=== PATIENT | male | born 1955 | race Caucasian/White ===

== ENCOUNTER 2019-12-27 17:18 | IRF | payer MEDICAID, SELFPAY ==
--- NOTE | ~2019-12-27 | US_ITS ---
EXAMINATION:US venous doppler LE BI INDICATION:Leg edema TECHNIQUE: Multiple grayscale, color flow and Doppler images of the lower extremity deep venous syste ms were obtained and reviewed. COMPARISON:No prior studies for comparison. FINDINGS: The common femoral, superficial femoral and popliteal veins demonstrate normal respiratory variation, augmentation and compressibility. Color flow is also seen within the posterior tibial, pe roneal, greater saphenous and profunda veins. IMPRESSION: 1: No lower extremity deep venous thrombosis. Reviewed, dictated and finalized at location A.
--- NOTE | ~2019-12-27 | US_ITS ---
EXAMINATION: US soft tissue LE RT DATE: 01/02/2020 13:39 INDICATION: Right calf mass. TECHNIQUE: Multiple grayscale and Doppler ultrasound images of the right lower leg were obtained. COMPARISON: None FINDINGS: In the medial right calf, there is a 5.8 x 1.9 x 3.5 cm mixed solid and cystic mass. IMPRESSION: 1. Mixed solid and cystic mass in the medial right calf, most likely a hematoma. Reviewed, dictated and finalized at location A. IMPRESSION: 1. Mixed solid and cystic mass in the medial right calf, most likely a hematoma .
[2019-12-27 17:15] VITALS: BP 133/92; PULSE 96; RESP 20; TEMP 37; O2SAT 100; BMI 40.0
--- NOTE | 2019-12-27 17:15 | ADMGEN ---
This patient, Gianluca Laurent, was admitted to [facility] Room 221-01. Patient/family oriented to hospital policies and general routines including ID bracelet, bed and alarms, visiting hours, pain management, procedures, bathroom and other care routines, personal items, smoking policy, room service/diet, and visiting hours. Valuables list has been completed. Information on how to activate the Rapid Response Team has been discussed. Patient/Family are encouraged to report perceived risks to care and to ask questions if they do not understand what they are told or what they should do.
[2019-12-27 22:00] VITALS: BP 129/51; PULSE 92; RESP 20; TEMP 37.2; O2SAT 99
[2019-12-27] MEDS: PANTOPRAZOLE 40 MG TABLET PO (22:53)
[2019-12-27] MEDS: MELATONIN 5 MG TABLET PO (22:53)
[2019-12-27] MEDS: ATORVASTATIN 40 MG TABLET 80 MG PO (22:53)
[2019-12-27] MEDS: DOCUSATE SODIUM 100 MG CAPSULE PO (22:53)
[2019-12-27] MEDS: ACETAMINOPHEN 325 MG TABLET 650 MG PO (22:53)
[2019-12-27 23:30] VITALS: PULSE 86; RESP 23; O2SAT 95
[2019-12-28] VITALS (8 sets, daily range): BP systolic 124–150; BP diastolic 52–61; PULSE 76–120; RESP 18–24; TEMP 36.5–36.6; O2SAT 95–100; BMI 39.4
[2019-12-28 01:05] LABS: Glucose Point of Care 153 (65-105)
[2019-12-28] MEDS: SALINE 0.65% NAS SOLN 44 ML BTL 1 SPRAY NASAL (04:48)
[2019-12-28] MEDS: ACETAMINOPHEN 325 MG TABLET 650 MG PO (04:48)
[2019-12-28 05:55] LABS: Basophils Percent Auto 0.3 % (0.2-1.2); Eosinophils Absolute Auto 0.2 K/mm3 (0-0.3); Eosinophils Percent Auto 2.4 % (0-4.4); Hematocrit 24.9 % (42.0-52.0); Hemoglobin 8.3 g/dL (14.0-18.0); Immature Granulocyte Absolute 0.09 K/mm3 (0.00-0.031); Immature Granulocyte Percent A 0.9 % (0-0.5); Lymphocytes Absolute Auto 2.51 K/mm3 (0.9-3.2); Lymphocytes Percent Auto 26.1 % (18.3-44.2); Mean Corpuscular HGB Conc 33.3 g/dl (32-36); Mean Corpuscular Hemoglobin 30.2 pg (26-34); Mean Corpuscular Volume 90.5 fl (80-100); Mean Platelet Volume 10.7 fl (7.4-10.4); Monocytes Absolute Auto 1.2 K/mm3 (0.1-0.6); Monocytes Percent Auto 12.7 % (2.6-8.5); Neutrophils Absolute Auto 5.6 K/mm3 (1.3-6.7); Neutrophils Percent Auto 57.6 % (45.5-73.1); Nucleated Red Blood Cells Absolute Auto 0.1 K/mm3 (0.0-0.012); Nucleated Red Blood Cells Perc 0.5 % (0.0-0.2); Platelet Count Result 344 k/mm3 (150-375); Red Blood Count 2.75 M/mm3 (4.6-6.20); Red Cell Distribution Width 14.1 % (11.5-14.5); White Blood Count 9.6 K/mm3 (4.5-10.0)
[2019-12-28 06:14] LABS: Blood Urea Nitrogen 21 mg/dL (9-20); Calcium 8.4 mg/dL (8.4-10.2); Carbon Dioxide 29 mmol/L (22-30); Chloride 99 mmol/L (98-107); Estimated CRCL calculation 89 ml/min; Estimated Glomerular Filt Rate > 60; Glucose 90 mg/dL (75-110); Potassium 4.1 mmol/L (3.4-5.0); Sodium 133 mmol/L (137-145)
[2019-12-28 06:25] LABS: Hemoglobin A1C 6.1 % (<5.7)
[2019-12-28 06:54] LABS: Glucose Point of Care 92 (65-105)
[2019-12-28] MEDS: CHOLECALCIFEROL 1,000 UNIT TABLET 3000 UNITS PO (10:21)
[2019-12-28] MEDS: ASPIRIN 81 MG ENTERIC TABLET PO (10:21)
[2019-12-28] MEDS: DOCUSATE SODIUM 100 MG CAPSULE PO ×2 (10:22→20:36)
[2019-12-28] MEDS: CLOPIDOGREL BISULFATE 75 MG TABLET PO (10:22)
[2019-12-28] MEDS: METOPROLOL SUCCINATE EXT REL 12.5 MG TABCR PO (10:22)
[2019-12-28] MEDS: FUROSEMIDE 40 MG TABLET PO (10:22)
[2019-12-28] MEDS: POTASSIUM CHLORIDE 20 MEQ TABLET.ER 40 MEQ PO (10:23)
[2019-12-28] MEDS: SERTRALINE HCL 50 MG TABLET 100 MG PO (10:23)
[2019-12-28] MEDS: PANTOPRAZOLE 40 MG TABLET PO ×2 (10:23→20:36)
--- NOTE | 2019-12-28 11:30 | WPDREHABHP ---
H&P: HPI History of Present Illness Chief complaint: CAD Narrative: Gianluca Laurent is a 64 year old male HISTORY OF PRESENT ILLNESS: The patient's primary rehab impairment category is 14-cardiac The etiologic diagnosis is coronary artery disease/ CABG x4 I saw this patient [id number] on December 28, 2019 at 11:30 a.m. The patient is a 64-year-old white male overweight with past medical history of hypertension, hyperlipidemia, obesity and anxiety was found to have 85% occlusion of the left main, 50% occlusion of the lad, and 100% occlusion of the right common carotid artery and 80% occlusion we with an ejection fraction of 65%. The patient was transferred to [facility] on December 20, 2019 for further evaluation and management. Cardiology was consulted. Preoperative testing was completed and he was placed on heparin drip during testing for cardiac protection. The patient did have chest pain going back last summer which was mostly on exertion but when it started coming on without exertion he sought the medical advise. The patient underwent a 4 vessel coronary artery bypass graft in December 22, [address] Camacho. His postoperative course was uncomplicated and he was extubated at the end of the case. He was transferred to ICU. His post TISHA demonstrated mild tricuspid regurgitation but no regional wall motion abnormalities. Shortly after arrival he required BiPAP for respiratory insufficiency. The patient is presently on room air. His pacing wires which were put on December 26, 2019 rather movement due February 07, 2028 chest tube have been removed in December 25, 2019. Postoperatively has experienced acute postoperative pain acute blood-loss anemia, leukocytosis and respiratory insufficiency. His pain is currently being managed with oral and 6 and he is hemodynamically stable with a hemoglobin of 8.3. White count are trending down and currently at 11,300 his oxygen saturation is 98% on room air the patient is discharged to rehab and subcutaneous heparin for DVT prophylaxis which actually a do not see on his profile which we received from [facility] we will see how does not know therapy The patient has not traveled outside the [place] or had contact with someone who is ill that has traveled outside the [place] in the past 21 days. The patient has not traveled to an area of the [place] that is experiencing known transmission of the Coronavirus and has not had close personal contact with someone that has. The patient does not have a fever. The patient does not have any respiratory symptoms Therapy was initiated at the acute care facility and the patient transferred to us from [facility] in December 27, 2019 on FALLS OR SURGERIES: The patient has had major surgeries in the 100 days prior to admission. They had no falls in the past year. They had no falls with injury in the past year. PAST MEDICAL HISTORY: abnormal echocardiogram, anxiety, coronary artery disease, hyperlipidemia, hypertension, obesity PAST SURGICAL HISTORY: recent cardiac catheterization, tonsillectomy and adenoidectomy SOCIAL HISTORY: the patient lives independently in a 1 level home with 2 step center. There is a rail on the right. He uses standard toilet and a tub shower combo. He has a shower chair. He is single and does not have any children FAMILY HISTORY: mother with heart disease sister with heart disease and hypertension he does not know anything about his father PRIOR LEVEL OF FUNCTION: Eating was INDEPENDENT Oral Care was INDEPENDENT Toileting Hygiene was INDEPENDENT Shower/Bathing was INDEPENDENT Upper Body Dressing was INDEPENDENT Lower Body Dressing was INDEPENDENT Donning/[place] Footwear was INDEPENDENT Rolling Left and Right was INDEPENDENT Sit to Lying was INDEPENDENT Lying to Sitting was INDEPENDENT Sit to Stand was INDEPENDENT Bed to Chair Transfers was INDEPENDENT Toilet Transfers was INDEPENDENT Walking was INDEPENDE
--- NOTE | 2019-12-28 11:34 | PC.NURSE ---
order received for diabetic consult, Miryam diabetic vocational education teacher notified
[2019-12-28 12:34] LABS: Glucose Point of Care 99 (65-105)
[2019-12-28] MEDS: MULTIVITAMIN HEMATINIC (*BKC) TABLET 1 TABLET PO (14:29)
[2019-12-28 17:41] LABS: Glucose Point of Care 114 (65-105)
[2019-12-28] MEDS: MELATONIN 5 MG TABLET PO (20:36)
[2019-12-28] MEDS: ATORVASTATIN 40 MG TABLET 80 MG PO (20:36)
[2019-12-29] VITALS (11 sets, daily range): BP systolic 106–164; BP diastolic 48–109; PULSE 77–95; RESP 18–24; TEMP 35.7–37.2; O2SAT 96–100
[2019-12-29 06:53] LABS: Glucose Point of Care 89 (65-105)
[2019-12-29] MEDS: ASPIRIN 81 MG ENTERIC TABLET PO (08:47)
[2019-12-29] MEDS: CHOLECALCIFEROL 1,000 UNIT TABLET 3000 UNITS PO (08:47)
[2019-12-29] MEDS: METOPROLOL SUCCINATE EXT REL 12.5 MG TABCR PO (08:48)
[2019-12-29] MEDS: CLOPIDOGREL BISULFATE 75 MG TABLET PO (08:48)
[2019-12-29] MEDS: FUROSEMIDE 40 MG TABLET PO (08:48)
[2019-12-29] MEDS: DOCUSATE SODIUM 100 MG CAPSULE PO ×2 (08:48→20:15)
[2019-12-29] MEDS: PANTOPRAZOLE 40 MG TABLET PO ×2 (08:49→20:15)
[2019-12-29] MEDS: POTASSIUM CHLORIDE 20 MEQ TABLET.ER 40 MEQ PO (08:49)
[2019-12-29] MEDS: MULTIVITAMIN HEMATINIC (*BKC) TABLET 1 TABLET PO (08:49)
[2019-12-29] MEDS: SERTRALINE HCL 50 MG TABLET 100 MG PO (08:50)
[2019-12-29 12:25] LABS: Glucose Point of Care 97 (65-105)
--- NOTE | 2019-12-29 12:35 | WPDNEURORHBP ---
Subjective Date/time seen: 12/29/19 12:35 Interval history: this 64-year-old the obese gentleman is here after having had a 4 vessel coronary artery bypass graft. His venous Doppler of the right lower extremities better his swelling is better the shortness of breath he headed for quite sometimes stable no chest pain no nausea vomiting and he is engage in therapy his generalized weakness is improved Review of Systems Review of Systems: All systems reviewed & are unremarkable except as noted in HPI and below Functional Status Ambulation Ability Ability to Ambulate 10 Feet: Independent Ability to Ambulate 50 Feet With 2 Turns: Independent Ability to Ambulate 150 Feet: Independent Ambulation Assistive Devices: None Transfers Ability Ability to Transfer In/Out of Chair: Independent Exam Const: General: comfortable and no acute distress HENMT: General nose exam: Normal nares present Mouth: Yes moist mucous membranes Eyes: General: appearance normal, both eyes and all related structures Neck: Neck: supple and no JVD Resp: Effort & Inspection: normal respiratory effort Auscultation: clear to auscultation bilaterally Cardio: Rate: regular rate Rhythm: regular rhythm GI: GI Palp: Yes Soft to palpation Auscultation: normal bowel sounds Skin: General skin exam: normal color and no rashes or lesions noted Neuro: Other: apart from the generalized weakness decreased endurance and fatigue the patient's neurological examination is nonfocal however he needs the PT OT and gait training to get back to his usual self Extrem: Other: the incision on his right lower extremity from which the venous graft was taken is clean and healthy swelling is less likewise the graft area on the left forearm from where the most likely radial artery graft was taken is also clean Psych: Mental Status: mental status grossly normal Objective Data Vital Signs Vital Signs: Vital Signs - 24 hr 12/28/19 13:00 12/28/19 14:00 12/28/19 21:54 Temperature 36.5 C Pulse Rate 105 H 91 Pulse Rate [With Activity During Therapy Session] 108 H Respiratory Rate 22 H 24 H Blood Pressure 150/61 H Pulse Oximetry 100 95 12/28/19 22:00 12/29/19 01:55 12/29/19 06:00 Temperature 36.6 C 36.3 C L Pulse Rate 92 88 85 Pulse Rate [With Activity During Therapy Session] Respiratory Rate 18 24 H 18 Blood Pressure 124/58 L 106/48 L Pulse Oximetry 100 96 97 12/29/19 08:48 12/29/19 11:00 Temperature 36.7 C Pulse Rate 85 81 Pulse Rate [With Activity During Therapy Session] Respiratory Rate 20 Blood Pressure 138/54 L Pulse Oximetry 100 Intake/Output Intake/Output: Intake & Output 12/26/19 12/27/19 12/28/19 12/29/19 23:59 23:59 23:59 23:59 Intake Total 240 960 240 Balance 240 960 240 Meds/Results Medications: Active Medications Generic Name Dose Route Start Last Admin Trade Name Freq PRN Reason Stop Dose Admin Acetaminophen 650 mg 12/27/19 18:57 12/28/19 04:48 Tylenol Tablet PO 650 mg Q6H PRN Administration Pain (Scale Score 1-3) Aspirin 81 mg 12/28/19 09:00 12/29/19 08:47 Aspirin Ec PO 81 mg DAILY OLIVIER Administration Atorvastatin Calcium 80 mg 12/27/19 21:00 12/28/19 20:36 Lipitor PO 80 mg HS OLIVIER Administration Clopidogrel Bisulfate 75 mg 12/28/19 09:00 12/29/19 08:48 Plavix PO 75 mg DAILY OLIVIER Administration Docusate Sodium 100 mg 12/27/19 21:00 12/29/19 08:48 Colace Capsule PO 100 mg Q12HR OLIVIER Administration Furosemide 40 mg 12/28/19 09:00 12/29/19 08:48 Lasix Tablet PO 40 mg DAILY OLIVIER Administration Melatonin 5 mg 12/27/19 21:00 12/28/19 20:36 Melatonin PO 5 mg HS OLIVIER Administration Metoprolol Succinate 12.5 mg 12/28/19 09:00 12/29/19 08:48 Toprol Xl PO 12.5 mg DAILY OLIVIER Administration Multivitamin Hematinic Therapeutic 1 tablet 12/28/19 09:00 12/29/19 08:49 Centrum PO 1 tablet QAM OLIVIER Administration Oxyco
--- NOTE | 2019-12-29 13:11 | RPD ---
INDIVIDUALIZED PLAN OF CARE FOR Gianluca Laurent Brief Synthesis of Pre-Admission Screen, Post-Admission Evaluation and Therapy Evaluations: The patient presents to rehab with coronary artery disease status post coronary artery bypass graft. Comorbidities include acute postoperative pain, acute blood loss anemia, leukocytosis, respiratory insufficiency, hypertension, hyperlipidemia, diabetes mellitus, and small pleural effusions.The patient?s needs will be best met in an intensive program vs. at a lower level of care. The patient requires physician services for medical oversight, management of post-op complications in setting of present comorbidities, and pain management. The patient requires nursing services for anticoagulation therapy, diabetes training, DVT prophylactics, infection protection, medication management and education, pressure relief, and wound care. Deficits include:ADLs, Balance, Endurance, Family Training/Education, Mobility, Pain Management, ROM, Safety, Strength, and Transfers. Retail Sales Merchandiser Development/Case Management for: Discharge Planning and Patient/Family Counseling Physical Therapy: 5 days per week for 90 minutes. Treatments may include: Therapeutic Exercise, Gait Training, Neuromuscular Re-education, Transfer Training, Community Reintegration, Bed Mobility, Patient/Family Education, Wheelchair Mobility Group Therapy/Concurrent Therapy Rationales: -Improve attention span during functional activities in a distracted environment. -Enhance problem solving and/or adequate judgment skills during functional activities in a distracted environment. -Promote increased safety awareness in a distracted environment to reduce fall risk with functional tasks, transfers, and ambulation to allow a more safe, self-sufficient return to the home environment. -Improve dynamic balance skills to promote safety and independence with functional activities in a distracted environment for maximum gain. Occupational Therapy: 5 days per week for 90 minutes. Treatments may include: Therapeutic Exercise, Therapeutic Activity, Cognitive Training, Self-Care Transfer Training, Community Reintegration, Home Management, Patient/Family Education, Wheelchair Mobility Training, Energy Conservation Training Group Therapy/Concurrent Therapy Rationales: -Allow therapist to observe and teach generalization and carry-over of skills learned in individual therapy. -Enhance problem solving and sequencing skills during therapeutic activities in a distracted environment. -Promote increased safety awareness in a realistic setting to reduce fall risk with functional tasks due to visual and verbal distractions. -Increase functional level with ADLs, ADL transfers and use of adaptive equipment through therapeutic activities with others while promoting safety to allow a more safe, self-sufficient return home. Medical Prognosis: Good Anticipated Length of Stay: 7 days Rehab Goals: Eating Goal: 06-Independent Oral Hygiene Goal: 06-Independent Toileting Hygiene Goal: 06-Independent Shower/Bathe Self Goal: 06-Independent Upper Body Dressing Goal: 06-Independent Lower Body Dressing Goal: 06-Independent Putting On/Taking Off Footwear Goal: 06-Independent Rolling Left and Right Goal: 06-Independent Sit to Lying Goal: 06-Independent Lying to Sitting on Side of Bed Goal: 06-Independent Sit to Stand Goal: 06-Independent Chair/[id number] Transfer Goal: 06-Independent Toilet Transfer Goal: 06-Independent Car Transfer Goal: 06-Independent Walk 10' Goal: 06-Independent Walk 50' with Two Turns Goal: 06-Independent Walk 150' Goal: 06-Independent Walk 10' on Uneven Surface Goal: 06-Independent 1 Step (Curb) Goal: 06-Independent 4 Steps Goal: 06-Independent 12 Steps Goal Score: 06-Independent Picking Up Object Goal: 06-Independent Wheel 50' with Two Turns Score: 09-Not Applicable Wheel 150' Goal: 09-Not Applicable Anticipated discharge destination: Home
[2019-12-29 16:58] LABS: Glucose Point of Care 101 (65-105)
[2019-12-29] MEDS: MELATONIN 5 MG TABLET PO (20:15)
[2019-12-29] MEDS: ATORVASTATIN 40 MG TABLET 80 MG PO (20:15)
[2019-12-30] VITALS (11 sets, daily range): BP systolic 120–154; BP diastolic 56–80; PULSE 82–97; RESP 15–20; TEMP 35.6–36.6; O2SAT 97–100
[2019-12-30 06:48] LABS: Glucose Point of Care 83 (65-105)
[2019-12-30] MEDS: CHOLECALCIFEROL 1,000 UNIT TABLET 3000 UNITS PO (09:11)
[2019-12-30] MEDS: CLOPIDOGREL BISULFATE 75 MG TABLET PO (09:11)
[2019-12-30] MEDS: ASPIRIN 81 MG ENTERIC TABLET PO (09:11)
[2019-12-30] MEDS: DOCUSATE SODIUM 100 MG CAPSULE PO ×2 (09:11→20:51)
[2019-12-30] MEDS: PANTOPRAZOLE 40 MG TABLET PO ×2 (09:12→20:52)
[2019-12-30] MEDS: FUROSEMIDE 40 MG TABLET PO (09:12)
[2019-12-30] MEDS: MULTIVITAMIN HEMATINIC (*BKC) TABLET 1 TABLET PO (09:12)
[2019-12-30] MEDS: METOPROLOL SUCCINATE EXT REL 12.5 MG TABCR PO (09:12)
[2019-12-30] MEDS: POTASSIUM CHLORIDE 20 MEQ TABLET.ER 40 MEQ PO (09:13)
[2019-12-30] MEDS: SERTRALINE HCL 50 MG TABLET 100 MG PO (09:13)
[2019-12-30 12:39] LABS: Glucose Point of Care 105 (65-105)
--- NOTE | 2019-12-30 15:18 | PCCCNOTE ---
On 12/30/19, the student, [Charlie Spann ], provided care and completed [facility] documentation on this patient. I have reviewed the student's documentation and agree with the findings.
[2019-12-30 17:31] LABS: Glucose Point of Care 103 (65-105)
[2019-12-30] MEDS: ATORVASTATIN 40 MG TABLET 80 MG PO (20:51)
[2019-12-30] MEDS: MELATONIN 5 MG TABLET PO (20:51)
[2019-12-31] VITALS (8 sets, daily range): BP systolic 116–150; BP diastolic 51–78; PULSE 80–100; RESP 16–20; TEMP 36.8–37.2; O2SAT 97–100
[2019-12-31 06:59] LABS: Glucose Point of Care 86 (65-105)
[2019-12-31] MEDS: CLOPIDOGREL BISULFATE 75 MG TABLET PO (07:52)
[2019-12-31] MEDS: FUROSEMIDE 40 MG TABLET PO (07:53)
[2019-12-31] MEDS: DOCUSATE SODIUM 100 MG CAPSULE PO ×2 (07:53→20:47)
[2019-12-31] MEDS: ASPIRIN 81 MG ENTERIC TABLET PO (07:53)
[2019-12-31] MEDS: METOPROLOL SUCCINATE EXT REL 12.5 MG TABCR PO (07:54)
[2019-12-31] MEDS: MULTIVITAMIN HEMATINIC (*BKC) TABLET 1 TABLET PO (07:55)
[2019-12-31] MEDS: POTASSIUM CHLORIDE 20 MEQ TABLET.ER 40 MEQ PO (07:56)
[2019-12-31] MEDS: SERTRALINE HCL 50 MG TABLET 100 MG PO (07:56)
[2019-12-31] MEDS: PANTOPRAZOLE 40 MG TABLET PO ×2 (07:56→20:48)
[2019-12-31] MEDS: CHOLECALCIFEROL 1,000 UNIT TABLET 3000 UNITS PO (07:57)
[2019-12-31 11:00] LABS: Hematocrit 30.9 % (42.0-52.0); Mean Corpuscular HGB Conc 32.4 g/dl (32-36); Mean Corpuscular Hemoglobin 29.5 pg (26-34); Mean Corpuscular Volume 91.2 fl (80-100); Mean Platelet Volume 10.1 fl (7.4-10.4); Platelet Count Result 545 k/mm3 (150-375); Red Blood Count 3.39 M/mm3 (4.6-6.20); Red Cell Distribution Width 14.4 % (11.5-14.5); White Blood Count 11.9 K/mm3 (4.5-10.0)
[2019-12-31 11:13] LABS: Blood Urea Nitrogen 19 mg/dL (9-20); Calcium 8.8 mg/dL (8.4-10.2); Carbon Dioxide 27 mmol/L (22-30); Chloride 96 mmol/L (98-107); Estimated CRCL calculation 87 ml/min; Estimated Glomerular Filt Rate > 60; Glucose 108 mg/dL (75-110); Potassium 4.4 mmol/L (3.4-5.0); Sodium 133 mmol/L (137-145)
--- NOTE | 2019-12-31 11:13 | PC.NURSE ---
BRUISING TO RT GROIN OLD WITH SMALL PUNCTURE SITES THAT ARE HEALING WELL
--- NOTE | 2019-12-31 12:32 | WPDNEURORHBP ---
Subjective Date/time seen: 12/31/19 12:32 Interval history: this 64-year-old gentleman is here status post CABG for coronary artery disease. He is complaining of some redness and swelling which is below the incision for the graft word was taken to be transplanted to in his heart. Is looks a little bit more cellulitic however he does not have any fever chills sore throat his been walking 150 feet but does have a significantly decreased endurance and fatigue and wants to get much better before he opts to go home we had a team conference this morning and discussed with sister and with him questions were answered and will watch his area of cellulitis carefully and put him on some antibiotic Review of Systems Review of Systems: All systems reviewed & are unremarkable except as noted in HPI and below Functional Status Ambulation Ability Ability to Ambulate 10 Feet: Independent Ability to Ambulate 50 Feet With 2 Turns: Independent Ability to Ambulate 150 Feet: Independent Ambulation Assistive Devices: None Transfers Ability Ability to Transfer In/Out of Chair: Independent Exam Const: General: comfortable and no acute distress HENMT: General nose exam: Normal nares present Mouth: Yes moist mucous membranes Eyes: General: appearance normal, both eyes and all related structures Neck: Neck: supple and no JVD Chest: Other: the incision from the CABG is clean Resp: Effort & Inspection: normal respiratory effort Auscultation: clear to auscultation bilaterally Cardio: Rate: regular rate Rhythm: regular rhythm GI: GI Palp: Yes Soft to palpation Auscultation: normal bowel sounds Skin: General skin exam: normal color and no rashes or lesions noted Other: the area at the upper part of the right leg seems to be cellulitic and redness and little warmth however no palpable area of fluctuating abscess or drainage drainage Neuro: Other: overall mental state examination normal cranial examination is normal is is strength is improving however is fatigue and tired easily and considering his CABG thus not out of ordinary Extrem: General: normal to inspection Other: except cellulitis of the right upper leg Psych: Mental Status: mental status grossly normal Objective Data Vital Signs Vital Signs: Vital Signs - 24 hr 12/30/19 13:00 12/30/19 14:00 12/30/19 21:58 Temperature 36.2 C L Pulse Rate 95 95 83 Respiratory Rate 20 18 Blood Pressure 154/61 H 154/61 H Pulse Oximetry 100 100 98 12/30/19 22:00 12/31/19 03:35 12/31/19 06:00 Temperature 36.4 C L 37.2 C Pulse Rate 93 81 84 Respiratory Rate 18 16 20 Blood Pressure 142/63 H 130/51 L Pulse Oximetry 100 97 100 12/31/19 08:00 Temperature Pulse Rate 84 Respiratory Rate 20 Blood Pressure Pulse Oximetry 100 Intake/Output Intake/Output: Intake & Output 12/28/19 12/29/19 12/30/19 12/31/19 23:59 23:59 23:59 23:59 Intake Total 960 720 720 Balance 960 720 720 Meds/Results Medications: Active Medications Generic Name Dose Route Start Last Admin Trade Name Freq PRN Reason Stop Dose Admin Acetaminophen 650 mg 12/27/19 18:57 12/28/19 04:48 Tylenol Tablet PO 650 mg Q6H PRN Administration Pain (Scale Score 1-3) Aspirin 81 mg 12/28/19 09:00 12/31/19 07:53 Aspirin Ec PO 81 mg DAILY OLIVIER Administration Atorvastatin Calcium 80 mg 12/27/19 21:00 12/30/19 20:51 Lipitor PO 80 mg HS OLIVIER Administration Clopidogrel Bisulfate 75 mg 12/28/19 09:00 12/31/19 07:52 Plavix PO 75 mg DAILY OLIVIER Administration Docusate Sodium 100 mg 12/27/19 21:00 12/31/19 07:53 Colace Capsule PO 100 mg Q12HR OLIVIER Administration Furosemide 40 mg 12/28/19 09:00 12/31/19 07:53 Lasix Tablet PO 40 mg DAILY OLIVIER Administration Melatonin 5 mg 12/27/19 21:00 12/30/19 20:51 Melatonin PO 5 mg HS OLIVIER Administration Metoprolol Succinate 12.5 mg 12/28/19 09:00 12/31/19 07:54 Toprol Xl PO 12.5 mg DAILY
[2019-12-31 12:50] LABS: Glucose Point of Care 118 (65-105)
[2019-12-31 17:15] LABS: Glucose Point of Care 98 (65-105)
[2019-12-31] MEDS: MELATONIN 5 MG TABLET PO (20:47)
[2019-12-31] MEDS: ATORVASTATIN 40 MG TABLET 80 MG PO (20:47)
[2020-01-01] VITALS (7 sets, daily range): BP systolic 123–132; BP diastolic 53–61; PULSE 76–90; RESP 18–20; TEMP 36.6–36.8; O2SAT 96–100
[2020-01-01 06:47] LABS: Glucose Point of Care 107 (65-105)
[2020-01-01] MEDS: ASPIRIN 81 MG ENTERIC TABLET PO (09:02)
[2020-01-01] MEDS: FUROSEMIDE 40 MG TABLET PO (09:03)
[2020-01-01] MEDS: CLOPIDOGREL BISULFATE 75 MG TABLET PO (09:03)
[2020-01-01] MEDS: DOCUSATE SODIUM 100 MG CAPSULE PO ×2 (09:03→21:08)
[2020-01-01] MEDS: MULTIVITAMIN HEMATINIC (*BKC) TABLET 1 TABLET PO (09:03)
[2020-01-01] MEDS: POTASSIUM CHLORIDE 20 MEQ TABLET.ER 40 MEQ PO (09:03)
[2020-01-01] MEDS: PANTOPRAZOLE 40 MG TABLET PO ×2 (09:03→21:15)
[2020-01-01] MEDS: CHOLECALCIFEROL 1,000 UNIT TABLET 3000 UNITS PO (09:03)
[2020-01-01] MEDS: SERTRALINE HCL 50 MG TABLET 100 MG PO (09:04)
[2020-01-01] MEDS: METOPROLOL SUCCINATE EXT REL 12.5 MG TABCR PO (09:04)
[2020-01-01 12:31] LABS: Glucose Point of Care 100 (65-105)
--- NOTE | 2020-01-01 16:38 | WPDNEURORHBP ---
Subjective Date/time seen: 01/01/20 16:38 Interval history: this 64-year-old is here after having had coronary artery bypass graft and still complaining of some redness and swelling at the side of the graft taken from the right lower extremity he is on Levaquin and I would ask hospitalist to see him for the need of question IV antibiotic He denies however any headache nausea vomiting chest pain shortness of breath fever chills sore throat Review of Systems Review of Systems: All systems reviewed & are unremarkable except as noted in HPI and below Functional Status Ambulation Ability Ability to Ambulate 10 Feet: Contact Guard Ability to Ambulate 50 Feet With 2 Turns: Contact Guard Ability to Ambulate 150 Feet: Contact Guard Ambulation Assistive Devices: None Transfers Ability Ability to Transfer In/Out of Chair: Independent Exam Const: General: comfortable and no acute distress HENMT: General nose exam: Normal nares present Mouth: Yes moist mucous membranes Eyes: General: appearance normal, both eyes and all related structures Neck: Neck: supple and no JVD Resp: Effort & Inspection: normal respiratory effort Auscultation: clear to auscultation bilaterally Cardio: Rate: regular rate Rhythm: regular rhythm GI: GI Palp: Yes Soft to palpation Auscultation: normal bowel sounds Skin: General skin exam: normal color and no rashes or lesions noted Neuro: Other: he is awake and alert well oriented to time place and person is speech language functions are normal cranial examination normal his endurance and the fatigue is improving and is looking forward to be going home early next week Extrem: Other: the right upper leg area is swollen and there is redness and possibly evidence of the cellulitis and I am going to request the hospitalist to see if he needs IV antibiotic are not Psych: Mental Status: mental status grossly normal Objective Data Vital Signs Vital Signs: Vital Signs - 24 hr 12/31/19 22:00 12/31/19 22:15 01/01/20 01:31 Temperature 37.2 C Pulse Rate 87 80 76 Respiratory Rate 18 20 18 Blood Pressure 116/78 Pulse Oximetry 100 98 96 01/01/20 06:00 01/01/20 09:04 01/01/20 11:00 Temperature 36.8 C 36.6 C Pulse Rate 84 84 90 Respiratory Rate 18 20 Blood Pressure 123/57 L 132/61 Pulse Oximetry 99 100 01/01/20 14:00 Temperature 36.6 C Pulse Rate 90 Respiratory Rate 20 Blood Pressure 132/61 Pulse Oximetry 100 Intake/Output Intake/Output: Intake & Output 12/29/19 12/30/19 12/31/19 01/01/20 23:59 23:59 23:59 23:59 Intake Total 720 720 480 480 Balance 720 720 480 480 Meds/Results Medications: Active Medications Generic Name Dose Route Start Last Admin Trade Name Freq PRN Reason Stop Dose Admin Acetaminophen 650 mg 12/27/19 18:57 12/28/19 04:48 Tylenol Tablet PO 650 mg Q6H PRN Administration Pain (Scale Score 1-3) Aspirin 81 mg 12/28/19 09:00 01/01/20 09:02 Aspirin Ec PO 81 mg DAILY OLIVIER Administration Atorvastatin Calcium 80 mg 12/27/19 21:00 12/31/19 20:47 Lipitor PO 80 mg HS OLIVIER Administration Clopidogrel Bisulfate 75 mg 12/28/19 09:00 01/01/20 09:03 Plavix PO 75 mg DAILY OLIVIER Administration Docusate Sodium 100 mg 12/27/19 21:00 01/01/20 09:03 Colace Capsule PO 100 mg Q12HR OLIVIER Administration Furosemide 40 mg 12/28/19 09:00 01/01/20 09:03 Lasix Tablet PO 40 mg DAILY OLIVIER Administration Levofloxacin 500 mg 01/01/20 12:00 01/01/20 12:45 Levaquin Tab PO 500 mg DAILY@1200 OLIVIER Administration Melatonin 5 mg 12/27/19 21:00 12/31/19 20:47 Melatonin PO 5 mg HS OLIVIER Administration Metoprolol Succinate 12.5 mg 12/28/19 09:00 01/01/20 09:04 Toprol Xl PO 12.5 mg DAILY OLIVIER Administration Multivitamin Hematinic Therapeutic 1 tablet 12/28/19 09:00 01/01/20 09:03 Centrum PO 1 tablet QAM OLIVIER Administration Oxycodone HCl 7.5 mg 12/27/19 22:47 12/31/19 20:48 R
[2020-01-01 17:18] LABS: Glucose Point of Care 91 (65-105)
[2020-01-01] MEDS: MELATONIN 5 MG TABLET PO (21:08)
[2020-01-01] MEDS: ATORVASTATIN 40 MG TABLET 80 MG PO (21:08)
[2020-01-01 21:50] LABS: Basophils Percent Auto 0.3 % (0.2-1.2); Eosinophils Absolute Auto 0.2 K/mm3 (0-0.3); Eosinophils Percent Auto 1.8 % (0-4.4); Hematocrit 27.4 % (42.0-52.0); Hemoglobin 8.8 g/dL (14.0-18.0); Immature Granulocyte Absolute 0.07 K/mm3 (0.00-0.031); Immature Granulocyte Percent A 0.5 % (0-0.5); Lymphocytes Absolute Auto 2.54 K/mm3 (0.9-3.2); Lymphocytes Percent Auto 19.7 % (18.3-44.2); Mean Corpuscular HGB Conc 32.1 g/dl (32-36); Mean Corpuscular Hemoglobin 29.4 pg (26-34); Mean Corpuscular Volume 91.6 fl (80-100); Mean Platelet Volume 9.8 fl (7.4-10.4); Monocytes Absolute Auto 1.1 K/mm3 (0.1-0.6); Monocytes Percent Auto 8.8 % (2.6-8.5); Neutrophils Absolute Auto 8.9 K/mm3 (1.3-6.7); Neutrophils Percent Auto 68.9 % (45.5-73.1); Platelet Count Result 575 k/mm3 (150-375); Red Blood Count 2.99 M/mm3 (4.6-6.20); White Blood Count 12.9 K/mm3 (4.5-10.0)
[2020-01-01 22:06] LABS: CRP 7.9 mg/dL (<1.0)
--- NOTE | 2020-01-02 02:44 | PM.IMCN ---
Assessment and Plan Assessment and plan (1) Cellulitis: Qualifiers: Site of cellulitis: unspecified site Qualified Code(s): L03.90 - Cellulitis, unspecified Code(s): L03.90 - Cellulitis, unspecified Status: Acute Assessment and Plan: The patient has some old bruising with a hematoma just inferior to his saphenous vein graft site on his right lower extremity. He does not have any significant warmth erythema currently. He does have some persistent leukocytosis the patient does report that his leg has improved since he was started on Levaquin on the . Have some leukocytosis but with a normal differential. I am uncertain if the patient has an acute cellulitis versus just increased swelling and erythema some dependent edema and breakdown of hematoma. Given his reported improvement in symptoms it would not be out of the question to continue Levaquin for 7 days. On also continue with elevating the extremity when possible and the addition of a compression stocking to help with dependent edema while participating in therapy. (2) Obesity: Code(s): E66.9 - Obesity, unspecified Status: Acute Assessment and Plan: The patient had not had an official sleep study. He would benefit from polysomnogram on discharge (3) Diabetes mellitus: Code(s): E11.9 - Type 2 diabetes mellitus without complications Status: Acute Assessment and Plan: The patient was educated as to the need for a dilated eye exam as outpatient Have been below 120 mg/dl Continue consistent carbohydrate diet. (4) Colon cancer screening: Code(s): Z12.11 - Encounter for screening for malignant neoplasm of colon Status: Acute Assessment and Plan: He will need a screening colonoscopy as outpatient. HPI Data of Consult Consult date: 01/02/20 Requesting Physician: Suresh Remy MD Primary Care Provider: [facility],KAYA TRIMBLE Consult Narrative Narrative: Date and time of patient contact: 01/02/2020 at 12:20 a.m. 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 The patient had evidently been having anginal symptoms on and off since summer. He underwent cardiac stress test in November 2019 and subsequent cardiac catheterization 12/20/2019 which demonstrated multivessel coronary artery disease. He then was sent to [facility] orient of 4 vessel CABG on 12/22/2019. In the postoperative. The patient was noted to have symptoms concerning for obstructive sleep apnea and has been started on a CPAP since that time. He denies any known history of obstructive sleep apnea but it sounds like he has not had much in the way of medical follow-up over the last year due to not having insurance. He had labs performed at that facility which demonstrated dyslipidemia and hypertriglyceridemia. He was also noted to be hyperglycemic and had labs confirmatory for diabetes. However, he has not required any insulin therapy except for the 1st few days postoperatively. He reports persistent shortness of breath following his cardiac procedure but denies any chest pain. He has not had any nausea or vomiting. He reports having normal bowel movements and denies any history of hematochezia or melena. He has never had a colonoscopy. He has had significant bruising in his right lower extremity that is been aging as expected following his surgical procedure. He reports that his leg has had fluctuating swelling since the surgical procedure. He reports that 2 days ago is calf seemed much more firm and had slight pruritus. He was started on Levaquin on the due to concern for possible cellulitis his saphenous vein graft site. He states that the swelling seeme
[2020-01-02 04:33] VITALS: PULSE 80; RESP 20; O2SAT 97
[2020-01-02 05:31] LABS: Basophils Percent Auto 0.2 % (0.2-1.2); Eosinophils Absolute Auto 0.2 K/mm3 (0-0.3); Eosinophils Percent Auto 1.9 % (0-4.4); Hematocrit 26.9 % (42.0-52.0); Hemoglobin 8.6 g/dL (14.0-18.0); Immature Granulocyte Absolute 0.04 K/mm3 (0.00-0.031); Immature Granulocyte Percent A 0.4 % (0-0.5); Lymphocytes Absolute Auto 2.12 K/mm3 (0.9-3.2); Lymphocytes Percent Auto 20.4 % (18.3-44.2); Mean Corpuscular Volume 90.6 fl (80-100); Mean Platelet Volume 9.6 fl (7.4-10.4); Monocytes Absolute Auto 0.8 K/mm3 (0.1-0.6); Monocytes Percent Auto 7.8 % (2.6-8.5); Neutrophils Absolute Auto 7.2 K/mm3 (1.3-6.7); Neutrophils Percent Auto 69.3 % (45.5-73.1); Platelet Count Result 566 k/mm3 (150-375); Red Blood Count 2.97 M/mm3 (4.6-6.20); Red Cell Distribution Width 14.1 % (11.5-14.5); White Blood Count 10.4 K/mm3 (4.5-10.0)
[2020-01-02 06:00] VITALS: BP 114/51; PULSE 75; RESP 19; TEMP 36.3; O2SAT 98
[2020-01-02 06:37] LABS: Glucose Point of Care 101 (65-105)
[2020-01-02] MEDS: CHOLECALCIFEROL 1,000 UNIT TABLET 3000 UNITS PO (09:30)
[2020-01-02] MEDS: CLOPIDOGREL BISULFATE 75 MG TABLET PO (09:30)
[2020-01-02] MEDS: ASPIRIN 81 MG ENTERIC TABLET PO (09:30)
[2020-01-02] MEDS: DOCUSATE SODIUM 100 MG CAPSULE PO ×2 (09:30→20:43)
[2020-01-02] MEDS: PANTOPRAZOLE 40 MG TABLET PO ×2 (09:31→20:43)
[2020-01-02] MEDS: POTASSIUM CHLORIDE 20 MEQ TABLET.ER 40 MEQ PO (09:31)
[2020-01-02] MEDS: FUROSEMIDE 40 MG TABLET PO (09:31)
[2020-01-02] MEDS: MULTIVITAMIN HEMATINIC (*BKC) TABLET 1 TABLET PO (09:31)
[2020-01-02] MEDS: SERTRALINE HCL 50 MG TABLET 100 MG PO (09:31)
[2020-01-02 09:32] VITALS: PULSE 75
[2020-01-02] MEDS: METOPROLOL SUCCINATE EXT REL 12.5 MG TABCR PO (09:32)
--- NOTE | 2020-01-02 11:18 | PM.IMPN ---
Progress Note: A&P Assessment and Plan (1) Cellulitis: Qualifiers: Site of cellulitis: unspecified site Qualified Code(s): L03.90 - Cellulitis, unspecified Code(s): L03.90 - Cellulitis, unspecified Status: Acute Assessment and Plan: -----patient is being treated for cellulitis of the right leg. There does not appear to be much erythema today on exam but the patient states that it is much better than it has been for the last few days so this could be because the antibiotic is working. His leukocytosis is improving and clinically he is feeling better so we will continue with a short dose (5 day) of antibiotics. He does not have any signs and symptoms of systemic infection. Will watch for fevers. He does have a hematoma, it does not feel like an abscess. Will do an ultrasound to ensure no issues but should resolve on its own. (2) Obesity: Code(s): E66.9 - Obesity, unspecified Status: Acute Assessment and Plan: -----patient would benefit from a outpatient sleep study after discharge (3) Diabetes mellitus: Code(s): E11.9 - Type 2 diabetes mellitus without complications Status: Acute Assessment and Plan: -----the patient's last A1c was 6.1 which makes him prediabetic. It does not appear that he is on any medication outpatient for this. Will discuss this with the patient before discharge (4) Colon cancer screening: Code(s): Z12.11 - Encounter for screening for malignant neoplasm of colon Status: Acute Assessment and Plan: He will need a screening colonoscopy as outpatient. (5) Thrombocytosis: Code(s): D47.3 - Essential (hemorrhagic) thrombocythemia Status: Acute Assessment and Plan: -----last platelet count 566. Likely due to reaction from surgery and possibly current infection. Monitor (6) Hyponatremia: Code(s): E87.1 - Hypo-osmolality and hyponatremia Status: Acute Assessment and Plan: -----slightly low at 133. Monitor Time Spent With Patient Time with patient: 25 - 35 minutes Subjective Date/time seen: 01/02/20 11:18 Interval history: Pt is a 64-year-old male here for rehab from his recent CABG found to have possible cellulitis. Patient was seen today and states he feels better today than he has in a while. He says his leg is feeling better and looking better. He is still having some SOB with activity but no CP. He says his SOB is getting better and he is starting to feel like his old self. He has no nausea, vomiting, fevers or chills. Review of Systems Review of Systems: All systems reviewed & are unremarkable except as noted in HPI and below Exam Narrative: Exam Narrative: General: Well developed well nourished patient resting in bed in NAD HEENT: normocephalic Neck: supple Neuro: Alert and oriented x4 CV:RRR Resp:CTA Skin: incisions to the left forearm, sternum, and right leg appear to be healing well without excessive bleeding, discharge, or dehiscence Abd: Soft, non distended. No pain to palpation. Positive bowel sounds Extremities: Small hematoma to the right leg below incision site from his laproscopic vein harvest. expected amount of bruising to the area. Objective Data Vital Signs Vital Signs: Vital Signs - 24 hr 01/01/20 14:00 01/01/20 22:00 01/01/20 22:21 Temperature 97.9 F 97.9 F Pulse Rate 90 88 84 Respiratory Rate 20 19 20 Blood Pressure 132/61 132/53 L Pulse Oximetry 100 100 99 01/02/20 04:33 01/02/20 06:00 01/02/20 09:32 Temperature 97.4 F L Pulse Rate 80 75 75 Respiratory Rate 20 19 Blood Pressure 114/51 L Pulse Oximetry 97 98 Intake/Output Intake/Output: Intake & Output 12/30/19 12/31/19 01/01/20 01/02/20 23:59 23:59 23:59 23:59 Intake Total 720 480 720 240 Balance 720 480 720 240 Meds/Results Medications: Active Medications Generic Name Dose Route Start Last Admin Trade Name Freq
[2020-01-02 12:28] LABS: Glucose Point of Care 96 (65-105)
[2020-01-02 14:00] VITALS: BP 137/52; PULSE 103; RESP 20; TEMP 36.8; O2SAT 97
--- NOTE | 2020-01-02 16:52 | WPDNEURORHBP ---
Subjective Date/time seen: 01/02/20 16:52 Interval history: Patient physically has overall improved in his endurance and fatigue has improved his leg also which we suspect has cellulitis and also hematoma from the saphenous graft which was taken for the coronary artery bypass graft also looks better the patient has been seen by the hospitalist and the seem to agree that we should continue the Levaquin for a little while and the patient will probably be discharged tomorrow provided the agricultural sales representative feel that he can go which I do not see any reason for him not to go he has a follow-up appointment with the surgeon and his boiler tester and he would need close follow-up. Review of Systems Review of Systems: All systems reviewed & are unremarkable except as noted in HPI and below Functional Status Ambulation Ability Ability to Ambulate 10 Feet: Independent Ability to Ambulate 50 Feet With 2 Turns: Independent Ability to Ambulate 150 Feet: Independent Ambulation Assistive Devices: None Transfers Ability Ability to Transfer In/Out of Chair: Independent Exam Const: General: comfortable and no acute distress HENMT: General nose exam: Normal nares present Mouth: Yes moist mucous membranes Eyes: General: appearance normal, both eyes and all related structures Neck: Neck: supple and no JVD Chest: Other: The incision from the coronary artery bypass graft is clean Resp: Effort & Inspection: normal respiratory effort Auscultation: clear to auscultation bilaterally Cardio: Rate: regular rate Rhythm: regular rhythm GI: GI Palp: Yes Soft to palpation Auscultation: normal bowel sounds Skin: General skin exam: normal color and no rashes or lesions noted Neuro: Other: patient's mental status examine normal cranial examination normal strength has improved significantly Extrem: Other: the swelling and redness of the right leg is better than yesterday is little hematoma by the ultrasound Psych: Mental Status: mental status grossly normal Objective Data Vital Signs Vital Signs: Vital Signs - 24 hr 01/01/20 22:00 01/01/20 22:21 01/02/20 04:33 Temperature 36.6 C Pulse Rate 88 84 80 Respiratory Rate 19 20 20 Blood Pressure 132/53 L Pulse Oximetry 100 99 97 01/02/20 06:00 01/02/20 09:32 01/02/20 14:00 Temperature 36.3 C L 36.8 C Pulse Rate 75 75 103 H Respiratory Rate 19 20 Blood Pressure 114/51 L 137/52 L Pulse Oximetry 98 97 Intake/Output Intake/Output: Intake & Output 12/30/19 12/31/19 01/01/20 01/02/20 23:59 23:59 23:59 23:59 Intake Total 720 480 720 480 Balance 720 480 720 480 Meds/Results Medications: Active Medications Generic Name Dose Route Start Last Admin Trade Name Ricardoq PRN Reason Stop Dose Admin Acetaminophen 650 mg 12/27/19 18:57 12/28/19 04:48 Tylenol Tablet PO 650 mg Q6H PRN Administration Pain (Scale Score 1-3) Aspirin 81 mg 12/28/19 09:00 01/02/20 09:30 Aspirin Ec PO 81 mg DAILY OLIVIER Administration Atorvastatin Calcium 80 mg 12/27/19 21:00 01/01/20 21:08 Lipitor PO 80 mg HS OLIVIER Administration Clopidogrel Bisulfate 75 mg 12/28/19 09:00 01/02/20 09:30 Plavix PO 75 mg DAILY OLIVIER Administration Docusate Sodium 100 mg 12/27/19 21:00 01/02/20 09:30 Colace Capsule PO 100 mg Q12HR OLIVIER Administration Furosemide 40 mg 12/28/19 09:00 01/02/20 09:31 Lasix Tablet PO 40 mg DAILY OLIVIER Administration Levofloxacin 500 mg 01/01/20 12:00 01/02/20 12:49 Levaquin Tab PO 500 mg DAILY@1200 OLIVIER Administration Melatonin 5 mg 12/27/19 21:00 01/01/20 21:08 Melatonin PO 5 mg HS OLIVIER Administration Metoprolol Succinate 12.5 mg 12/28/19 09:00 01/02/20 09:32 Toprol Xl PO 12.5 mg DAILY OLIVIER Administration Multivitamin Hematinic Therapeutic 1 tablet 12/28/19 09:00 01/02/20 09:31 Centrum PO 1 tablet QAM OLIVIER Administration Oxycodone HCl 7.5 mg 12/27/19 22:47 12/31/19 20:48 Roxicodone
[2020-01-02 17:32] LABS: Glucose Point of Care 108 (65-105)
[2020-01-02] MEDS: ATORVASTATIN 40 MG TABLET 80 MG PO (20:43)
[2020-01-02] MEDS: MELATONIN 5 MG TABLET PO (20:43)
[2020-01-02] MEDS: ACETAMINOPHEN 325 MG TABLET 650 MG PO (20:45)
[2020-01-02 21:37] VITALS: BP 105/60; PULSE 87; RESP 18; TEMP 37; O2SAT 100
[2020-01-02 22:30] VITALS: PULSE 94; RESP 19; O2SAT 97
[2020-01-03 01:35] VITALS: PULSE 88; RESP 16; O2SAT 97
[2020-01-03 04:56] LABS: Basophils Percent Auto 0.3 % (0.2-1.2); Eosinophils Absolute Auto 0.2 K/mm3 (0-0.3); Eosinophils Percent Auto 1.7 % (0-4.4); Hematocrit 27.7 % (42.0-52.0); Immature Granulocyte Absolute 0.04 K/mm3 (0.00-0.031); Immature Granulocyte Percent A 0.4 % (0-0.5); Lymphocytes Absolute Auto 2.02 K/mm3 (0.9-3.2); Lymphocytes Percent Auto 18.8 % (18.3-44.2); Mean Corpuscular HGB Conc 32.5 g/dl (32-36); Mean Corpuscular Hemoglobin 29.5 pg (26-34); Mean Corpuscular Volume 90.8 fl (80-100); Mean Platelet Volume 9.6 fl (7.4-10.4); Monocytes Absolute Auto 0.8 K/mm3 (0.1-0.6); Monocytes Percent Auto 7.4 % (2.6-8.5); Neutrophils Absolute Auto 7.7 K/mm3 (1.3-6.7); Neutrophils Percent Auto 71.4 % (45.5-73.1); Platelet Count Result 571 k/mm3 (150-375); Red Blood Count 3.05 M/mm3 (4.6-6.20); White Blood Count 10.7 K/mm3 (4.5-10.0)
[2020-01-03 05:08] LABS: Alanine Aminotransferase 114 U/L (4-50); Albumin Level 3.4 g/dL (3.5-5.1); Alkaline Phosphatase 96 U/L (38-126); Aspartate Amino Transferase 60 U/L (17-59); Bilirubin,Total 0.3 mg/dL (0.2-1.3); Blood Urea Nitrogen 17 mg/dL (9-20); Carbon Dioxide 29 mmol/L (22-30); Chloride 103 mmol/L (98-107); Estimated CRCL calculation 77 ml/min; Estimated Glomerular Filt Rate > 60; Glucose 103 mg/dL (75-110); Potassium 4.2 mmol/L (3.4-5.0); Sodium 137 mmol/L (137-145)
[2020-01-03 06:00] VITALS: BP 150/54; PULSE 83; RESP 18; TEMP 35.9; O2SAT 100
[2020-01-03 06:32] LABS: Glucose Point of Care 96 (65-105)
[2020-01-03] MEDS: FUROSEMIDE 40 MG TABLET PO (08:21)
[2020-01-03 08:22] VITALS: PULSE 83
[2020-01-03] MEDS: DOCUSATE SODIUM 100 MG CAPSULE PO (08:22)
[2020-01-03] MEDS: MULTIVITAMIN HEMATINIC (*BKC) TABLET 1 TABLET PO (08:22)
[2020-01-03] MEDS: METOPROLOL SUCCINATE EXT REL 12.5 MG TABCR PO (08:22)
[2020-01-03] MEDS: CHOLECALCIFEROL 1,000 UNIT TABLET 3000 UNITS PO (08:23)
[2020-01-03] MEDS: CLOPIDOGREL BISULFATE 75 MG TABLET PO (08:23)
[2020-01-03] MEDS: ASPIRIN 81 MG ENTERIC TABLET PO (08:23)
[2020-01-03] MEDS: POTASSIUM CHLORIDE 20 MEQ TABLET.ER 40 MEQ PO (08:24)
[2020-01-03] MEDS: SERTRALINE HCL 50 MG TABLET 100 MG PO (08:24)
[2020-01-03] MEDS: PANTOPRAZOLE 40 MG TABLET PO (08:24)
--- NOTE | 2020-01-03 08:43 | PM.IMPN ---
Progress Note: A&P Assessment and Plan (1) Cellulitis: Qualifiers: Site of cellulitis: unspecified site Qualified Code(s): L03.90 - Cellulitis, unspecified Code(s): L03.90 - Cellulitis, unspecified Status: Acute Assessment and Plan: -----patient is being treated for cellulitis of the right leg. There does not appear to be much erythema today on exam but the patient states that it is much better than it has been for the last few days so this could be because the antibiotic is working. His leukocytosis is improving and clinically he is feeling better so we will continue with a short dose of antibiotics. He does not have any signs and symptoms of systemic infection. u/s confirms hematoma. (2) Obesity: Code(s): E66.9 - Obesity, unspecified Status: Acute Assessment and Plan: -----patient would benefit from a outpatient sleep study after discharge (3) Diabetes mellitus: Code(s): E11.9 - Type 2 diabetes mellitus without complications Status: Acute Assessment and Plan: -----the patient's last A1c was 6.1 which makes him prediabetic. It does not appear that he is on any medication outpatient for this. continue diet control (4) Colon cancer screening: Code(s): Z12.11 - Encounter for screening for malignant neoplasm of colon Status: Acute Assessment and Plan: He will need a screening colonoscopy as outpatient. (5) Thrombocytosis: Code(s): D47.3 - Essential (hemorrhagic) thrombocythemia Status: Acute Assessment and Plan: -----last platelet count 571 Likely due to reaction from surgery and possibly current infection. Monitor (6) Hyponatremia: Code(s): E87.1 - Hypo-osmolality and hyponatremia Status: Acute Assessment and Plan: -----resolved. 137 today (7) Elevated ALT measurement: Code(s): R74.0 - Nonspecific elevation of levels of transaminase and lactic acid dehydrogenase [LDH] Status: Acute Assessment and Plan: -----pt states he has a hx of his liver tests being abnormal. Will have him follow up with pcp and redraw in one week. No need to extend hospitalization for this. Subjective Date/time seen: 01/03/20 08:43 Interval history: Pt is a 64 y/o here for rehab after CABG with hematoma and cellulitis. Pt was seen today and feels better than he has in months. He is ready to go home. He says he has a hx of being told his liver doesn't work quite right but never diagnosed with hepatitis that he knows of. he denies SOB, CP, fevers, chills, abdominal pain or lack of appetite today. Exam Narrative: Exam Narrative: General: Well developed well nourished patient resting in bed in NAD HEENT: normocephalic Neck: supple Neuro: Alert and oriented x4 CV:RRR Resp:CTA Skin: incisions to the left forearm, sternum, and right leg appear to be healing well without excessive bleeding, discharge, or dehiscence Abd: Soft, non distended. No pain to palpation. Positive bowel sounds Extremities: Small hematoma to the right leg below incision site from his laproscopic vein harvest. expected amount of bruising to the area. Objective Data Vital Signs Vital Signs: Vital Signs - 24 hr 01/02/20 09:32 01/02/20 14:00 01/02/20 21:37 Temperature 98.2 F 98.6 F Pulse Rate 75 103 H 87 Respiratory Rate 20 18 Blood Pressure 137/52 L 105/60 Pulse Oximetry 97 100 01/02/20 22:30 01/03/20 01:35 01/03/20 06:00 Temperature 96.7 F L Pulse Rate 94 88 83 Respiratory Rate 19 16 18 Blood Pressure 150/54 H Pulse Oximetry 97 97 100 01/03/20 08:22 Temperature Pulse Rate 83 Respiratory Rate Blood Pressure Pulse Oximetry Intake/Output Intake/Output: Intake & Output 12/31/19 01/01/20 01/02/20 01/03/20 23:59 23:59 23:59 23:59 Intake Total 480 720 720 240 Balance 480 720 720 240 Meds/Results Medications: Active Medications Generic Name Dose Route S
[2020-01-03 10:48] LABS: Hepatitis B Surface Antigen Negative (Negative)
--- NOTE | 2020-01-03 10:52 | WPDNEURORHBP ---
Subjective Date/time seen: S/P CABG times 4 with hypertension , hyperlipidemia ,obesity and anxiety with cellulitis and underlying saphenous graft will follow with the surgeon still on Abts01/03/20 10:52 Review of Systems Review of Systems: All systems reviewed & are unremarkable except as noted in HPI and below Functional Status Ambulation Ability Ability to Ambulate 10 Feet: Independent Ability to Ambulate 50 Feet With 2 Turns: Independent Ability to Ambulate 150 Feet: Independent Ambulation Assistive Devices: None Transfers Ability Ability to Transfer In/Out of Chair: Independent Exam Const: General: cooperative and comfortable Nutritional Appearance: obese and overweight HENMT: Head: normal to inspection General nose exam: Normal external nose present and No nasal discharge present Eyes: General: appearance normal, both eyes and all related structures Neck: Neck: full ROM Chest: Chest palpation & inspection: normal inspection of the chest (incision clean) Resp: Effort & Inspection: normal respiratory effort and able to speak in complete sentences Auscultation: clear to auscultation bilaterally Cardio: Rate: regular rate GI: Percussion: Yes normal to percussion Auscultation: normal bowel sounds Skin: General skin exam: no rashes or lesions noted Wounds: wounds noted Neuro: General: patient oriented x3 and moves all extremities Cranial nerves: Yes CN's II-XII intact bilaterally, Yes Equal, round and reactive pupils present, Yes Bilaterally intact EOM present, Yes Nystagmus not present, Yes Midline tongue present and Yes Ability to bilaterally elevate shoulders present Cognition (Neuro): normal cognition Motor exam (neuro): Normal motor muscle tone present throughout Extrem: General: normal to inspection (improving) Psych: Appearance: grossly normal Objective Data Vital Signs Vital Signs: Vital Signs - 24 hr 01/02/20 14:00 01/02/20 21:37 01/02/20 22:30 Temperature 36.8 C 37.0 C Pulse Rate 103 H 87 94 Respiratory Rate 20 18 19 Blood Pressure 137/52 L 105/60 Pulse Oximetry 97 100 97 01/03/20 01:35 01/03/20 06:00 01/03/20 08:22 Temperature 35.9 C L Pulse Rate 88 83 83 Respiratory Rate 16 18 Blood Pressure 150/54 H Pulse Oximetry 97 100 Intake/Output Intake/Output: Intake & Output 12/31/19 01/01/20 01/02/20 01/03/20 23:59 23:59 23:59 23:59 Intake Total 480 720 720 240 Balance 480 720 720 240 Meds/Results Medications: Active Medications Generic Name Dose Route Start Last Admin Trade Name Delonte PRN Reason Stop Dose Admin Acetaminophen 650 mg 12/27/19 18:57 01/02/20 20:45 Tylenol Tablet PO 650 mg Q6H PRN Administration Pain (Scale Score 1-3) Aspirin 81 mg 12/28/19 09:00 01/03/20 08:23 Aspirin Ec PO 81 mg DAILY OLIVIER Administration Atorvastatin Calcium 80 mg 12/27/19 21:00 01/02/20 20:43 Lipitor PO 80 mg HS OLIVIER Administration Clopidogrel Bisulfate 75 mg 12/28/19 09:00 01/03/20 08:23 Plavix PO 75 mg DAILY OLIVIER Administration Docusate Sodium 100 mg 12/27/19 21:00 01/03/20 08:22 Colace Capsule PO 100 mg Q12HR OLIVIER Administration Furosemide 40 mg 12/28/19 09:00 01/03/20 08:21 Lasix Tablet PO 40 mg DAILY OLIVIER Administration Levofloxacin 500 mg 01/01/20 12:00 01/02/20 12:49 Levaquin Tab PO 500 mg DAILY@1200 OLIVIER Administration Melatonin 5 mg 12/27/19 21:00 01/02/20 20:43 Melatonin PO 5 mg HS OLIVIER Administration Metoprolol Succinate 12.5 mg 12/28/19 09:00 01/03/20 08:22 Toprol Xl PO 12.5 mg DAILY OLIVIER Administration Multivitamin Hematinic Therapeutic 1 tablet 12/28/19 09:00 01/03/20 08:22 Centrum PO 1 tablet QAM OLIVIER Administration Oxycodone HCl 7.5 mg 12/27/19 22:47 12/31/19 20:48 Roxicodone Ir Tablet PO 7.5 mg Q4H PRN Administration Pain Rated 7-10 Pantoprazole Sodium 40 mg 12/27/19 21:00 01/03/20 08:24 Protonix PO 40 mg Q12HR S
[2020-01-03 10:53] LABS: HAV RESULT Negative (Negative); Hepatitis B Core IgM Result Negative (Negative)
[2020-01-03 11:05] LABS: Hepatitis C Virus Antibody Negative (Negative)
--- NOTE | 2020-01-05 15:22 | PM.DS ---
DS: Admitting Diagnosis Admitting Diagnosis Admitting Diagnosis: Atherosclerotic heart disease of [place] coronary artery without angina pectoris DS: Discharge Diagnosis Discharge Diagnosis (1) Elevated ALT measurement: Code(s): R74.0 - Nonspecific elevation of levels of transaminase and lactic acid dehydrogenase [LDH] Status: Acute (2) Hyponatremia: Code(s): E87.1 - Hypo-osmolality and hyponatremia Status: Acute (3) Thrombocytosis: Code(s): D47.3 - Essential (hemorrhagic) thrombocythemia Status: Acute (4) Colon cancer screening: Code(s): Z12.11 - Encounter for screening for malignant neoplasm of colon Status: Acute (5) Diabetes mellitus: Code(s): E11.9 - Type 2 diabetes mellitus without complications Status: Acute (6) Cellulitis: Qualifiers: Site of cellulitis: unspecified site Qualified Code(s): L03.90 - Cellulitis, unspecified Code(s): L03.90 - Cellulitis, unspecified Status: Acute (7) Obesity: Code(s): E66.9 - Obesity, unspecified Status: Acute (8) Coronary artery disease: Code(s): I25.10 - Atherosclerotic heart disease of [place] coronary artery without angina pectoris Status: Acute (9) Hyperlipidemia: Code(s): E78.5 - Hyperlipidemia, unspecified Status: Acute (10) Hypertension: Code(s): I10 - Essential (primary) hypertension Status: Acute DS: Summary Hospital Course Reason for hospitalization: the patient was admitted with the other diagnosis as have been mentioned above received the PT OT gait training and medical management and was able to be discharged home with outpatient physical therapy he did have a little cellulitic area and hematoma at the site of the saphenous graft on for which we consulted the hospitalist and the notes can be reviewed and recommendations were followed Hospital Course: the patient was able to achieve the following independent measures Eating independent oral hygiene independent toileting independent bathing independent upper body dressing independent lower body dressing independent footwear independent rolling in bed independent sitting to lying independent lying to sitting independent [id number] independent chair transfers independent toilet transfers independent car transfers independent walking 10 feet independent walking 50 feel free to turns independent walking 10 feet uneven surfaces independent [place] step independent 4 steps independent 12 steps independent became object independent wheelchair not applicable Time Spent with Patient Time attestation: Total time spent providing and/or coordinating discharge services: Exam Const: General: comfortable and no acute distress HENMT: General nose exam: Normal nares present Mouth: Yes dry mucous membranes Eyes: General: appearance normal, both eyes and all related structures Neck: Neck: supple and no JVD Resp: Effort & Inspection: normal respiratory effort Auscultation: clear to auscultation bilaterally Cardio: Rate: regular rate Rhythm: regular rhythm GI: GI Palp: Yes Soft to palpation Auscultation: normal bowel sounds Skin: General skin exam: normal color and no rashes or lesions noted Neuro: Other: normal Extrem: General: normal to inspection Other: the hematoma at the right leg stable the cellulitic area improved Psych: Mental Status: mental status grossly normal Discharge Plan Discharge Attending physician on discharge: Suresh Remy Consulting providers: Georgette Brown ; Jeremiah Cabrera ; Darrius Roman ; Vaughn eCrvantes ; Alison Coronel ; Rich Aragon ; Ivette Harris ; Naa Watson ; Ysabel Adan ; Eleanor Caballero ; Zoe Oseguera ; Angus Richardson ; Diana Fabian ; Kyle Adair ; Leilani Moreland ; Reji Alexandre ; Patricia Tovar ; Delmer Riggs ; Diya Mcmahan ; Liberty Billy ; Avis Dominguez ; Vincent Blunt ; BraydenMal
== END 2020-01-03 09:00 | disposition home or self-care (01) | DRG 949 ==
PROVIDERS: Internal Medicine; Physician Assistant; Admitting Provider Psychiatry & Neurology Neurology; PCP Internal Medicine; Visit Provider Psychiatry & Neurology Neurology
DX: Z48.812 Encounter for surgical aftercare following surgery on the circulatory system (principal); L03.115 Cellulitis of right lower limb; L76.32 Postprocedural hematoma of skin and subcutaneous tissue following other procedure; Z95.1 Presence of aortocoronary bypass graft; I25.10 Atherosclerotic heart disease of native coronary artery without angina pectoris; D72.829 Elevated white blood cell count, unspecified; D47.3 Essential (hemorrhagic) thrombocythemia; E78.5 Hyperlipidemia, unspecified; E66.9 Obesity, unspecified; F41.9 Anxiety disorder, unspecified; I10 Essential (primary) hypertension; I07.1 Rheumatic tricuspid insufficiency; R60.0 Localized edema; Z98.890 Other specified postprocedural states; R09.02 Hypoxemia; Z79.02 Long term (current) use of antithrombotics/antiplatelets; Z68.38 Body mass index [BMI] 38.0-38.9, adult; Z87.891 Personal history of nicotine dependence
CPT/HCPCS: 36415; 76882; 80048; 80074; 80076; 83036; 85025; 85027; 86140; 93970; 94660; 97110; 97116; 97161; 97165; 97530; 97535; A9270